=== PATIENT | male | born 1955 | race Caucasian/White ===

== ENCOUNTER 2017-02-04 06:50 | Day surgery (SDC) | payer BC ==
--- NOTE | ~2017-02-04 | EGD ---
EGD REPORT [facility] [address] [id number] NAME: KEARA SARABIA : [birth year] STATUS : [facility]#: [id number] AGE: 62 ADM/REG DATE : 02/04/17 MR#: [id number] REPORT SERV DATE: 02/04/17 DICTATED BY: DATE: REPORT STATUS : Draft TRANSCRIBED BY: [employer] DATE: 02/04/17 [facility] Patient Name: Keara Sarabia Date of : 1955 Attending MD: TIFFANIE ALEXANDRE MD Procedure Date No Time: 02/04/2017 Procedure: Colonoscopy Indications: Hematochezia, Abdominal pain in the left lower quadrant Referring MD: RANDY ALLISON Medicines: Monitored Anesthesia Care Complications: No immediate complications. Procedure: Pre-Anesthesia Assessment: - ASA Grade Assessment: II - A patient with mild systemic disease. After I obtained informed consent, the scope was passed under direct vision. Throughout the procedure, the patient's blood pressure, pulse, and oxygen saturations were monitored continuously. The PCF [id number] was introduced through the anus and advanced to the cecum, identified by appendiceal orifice and ileocecal valve. The colonoscopy was performed without difficulty. The patient tolerated the procedure well. The quality of the bowel preparation was good. Findings: The perianal exam was abnormal. Findings include internal hemorrhoids that prolapse with straining, but require manual replacement into the anal canal (Grade III). Multiple small and large-mouthed diverticula were found in the sigmoid colon. A sessile polyp was found in the cecum. The polyp was diminutive in size. The polyp was removed with a cold biopsy forceps. Resection and retrieval were complete. Localized moderate inflammation characterized by erosions, erythema, friability, granularity and mucus was found in the sigmoid colon, especially at tops of folds, consistent with SCAD. Biopsies were taken with a cold forceps for histology. No other significant abnormalities were identified in a careful examination of the remainder of the colon. There is no endoscopic evidence of mass, ulcerations or scarring in the entire colon. Biopsies were obtained from the right and left areas representing normal exam. No additional abnormalities were found on retroflexion. Impression: - Internal hemorrhoids that prolapse with straining, but EGD REPORT [place] [id number] [facility] [place]. [address] NAME: KEARA SARABIA : [birth year] STATUS : [facility] PAT#: [id number] AGE: 62 ADM/REG DATE : 02/04/17 MR#: [id number] REPORT SERV DATE: 02/04/17 DICTATED BY: DATE: REPORT STATUS : Draft TRANSCRIBED BY: [employer] DATE: 02/04/17 require manual replacement into the anal canal (Grade III) found on perianal exam. - Diverticulosis in the sigmoid colon. - One diminutive polyp in the cecum. Resected and retrieved. - Localized moderate inflammation was found in the sigmoid colon secondary to colitis, suspect SCAD. Biopsied. Recommendation: - Patient has a contact number available for emergencies. The signs and symptoms of potential delayed complications were discussed with the patient. Return to normal activities tomorrow. Written discharge instructions were provided to the patient. - High fiber diet. - Discharge patient to home. - Continue present medications. - Await pathology results. - Send ASCA, ANCA, CRP. Plan initial treatment with cipro/flagyl. If fail then begin mesalamine. - Use Analpram HC Cream 2.5%: Apply externally BID. - Use fiber, for example Citrucel, Fibercon, Konsyl or Metamucil. - Anusol (pramoxine) suppository: Insert rectally daily for 5 days. - Repeat colonoscopy in 6 months to check healing. Procedure Code(s): --- Professional --- 52726, Colonoscopy, flexible, proximal to splenic flexure; with biopsy, single or multiple Diagnosis Code(s): --- Professional --- K64.2, Third degree hemorrhoids K57.30, Diverticulosis of large intestine without perforation or abscess without bleeding D12.0, Benign neoplasm of cecum K52.9, Noninfective gastroenteritis and colitis, unspecified K92.1, Melena R10.32, Left lower quadrant pain CPT copyright 2013 [employer]. All rights reserved. The codes documented in this report are preliminary and upon independent living instructor review may be revised to meet current compliance requirements. EGD REPORT [facility] [address] [address] NAME: KEARA SARABIA : [birth year] STATUS : [facility] PAT#: [id number] AGE: 62 ADM/REG DATE : 02/04/17 MR#: [id number] REPORT SERV DATE: 02/04/17 DICTATED BY: DATE: REPORT STATUS : Draft TRANSCRIBED BY: [employer] DATE: 02/04/17 TIFFANIE ALEXANDRE MD 02/04/2017 8:53 AM This report has been signed electronically. Number of Addenda: 0 Note Initiated On: 02/04/2017 8:12 AM Scope Withdrawal Time 0 hours 19 minutes 33 seconds [address] [id number]
[~2017-02-04 06:50] MED LIST: FLONASE NAS; FORTAMET500 MG PO; MONODOX100 MG PO; PRILO PO; PRIN20 PO
[2017-02-05 23:04] LABS: ANCA <1:20 (()); MYELOPEROXIDASE ANTIBODY <0.2 AI (<1.0); PROTEINASE 3 ANTIBODY 0.8 AI (<1.0)
[2017-02-06 21:11] LABS: S. CEREVISIAE IGA 17.7 Units (0.0-24.9); S. CEREVISIAE IGG 19.9 Units (0.0-24.9)
== END 2017-02-04 23:59 | disposition home or self-care (01) ==
LOC: DMU 06:50
PROVIDERS: Internal Medicine Gastroenterology
PROC: 0DBN8ZX Excision of Sigmoid Colon, Via Natural or Artificial Opening Endoscopic, Diagnostic (ICD-10-PCS; 2017-02-04)
PROC: 0DBF8ZX Excision of Right Large Intestine, Via Natural or Artificial Opening Endoscopic, Diagnostic (ICD-10-PCS; 2017-02-04)
PROC: 0DBG8ZX Excision of Left Large Intestine, Via Natural or Artificial Opening Endoscopic, Diagnostic (ICD-10-PCS; 2017-02-04)
PROC: 0DBH8ZZ Excision of Cecum, Via Natural or Artificial Opening Endoscopic (ICD-10-PCS; principal; 2017-02-04 08:30)
DX: K52.9 Noninfective gastroenteritis and colitis, unspecified (principal); K62.89 Other specified diseases of anus and rectum; K64.2 Third degree hemorrhoids; K57.30 Diverticulosis of large intestine without perforation or abscess without bleeding; K92.1 Melena; I10 Essential (primary) hypertension; E11.9 Type 2 diabetes mellitus without complications
CPT/HCPCS: 82962; 83516; 83516-59; 86140; 86255; 86671; 86671-59; 88305